=== PATIENT | female | born 1980 | race Two or more races ===

== ENCOUNTER 2024-05-15 12:55 | Outpatient (RCR) | payer MEDICAID, SELFPAY ==
--- NOTE | 2024-05-15 13:12 | PTNOTE_ITS ---
PT OP Initial Eval Patient Information Outpatient Physical Therapy Treatment Date: 05/15/24 Visit Reasons: low back unspeciefied Medical Diagnosis: M54.5 Treatment Dx #1: LBP with radiculopathy Start of Care: 05/15/24 Date of Onset: 1 yr ago Smoking Status Smoking Status: Never smoker Initial Assessment Subjective: Pt is 43 yr old faroese speaking female who c/o LBP and B lateral hip pain that interrupts sleep. Increased pain with prolonged sitting and standing and there is pain in B LE's down the LE to the knees. She can do HH chores without significant pain PMH: allergies Imaging: Xray results in chart: negative Pt goal: to lessen the LBP Objective: Trunk ArOM: ? B SB 50% of normal with pain ? Extension: 20% with pain around L4-5, L5-S1 ? Flexion: 10 from floor with mild LBP ? B rotation: 60% with pain in lateral hips ? TTP: moderate paraspinals L5-S1 ? Neuro: L SLR: positive Assessment: ? Pt presents with trunk flexion sensitivity and overlying myofascial pain ? and TTP around L5-S1 consistent with ? lower lumbar disc bulge(s) with radiculopathy. Pt requires skilled therapy in order to decrease ? pain and improve sitting/standing tolerance and has fair rehab potential. Eval ?followed by [facility]P printout. Short Term and Director Business Intelligence Goals ? 1. Ind with HEP ? 2. Improved sitting/standing tolerance to 30 minutes with <=4/10 LBP ? 3. Decreased lower paraspinal TTP from mod to min 4. Improved HH chore tolerance to at least 30 minutes with <=3/10 LBP and no ?increase in LE ssx ? Treatment Plan 1. Manual therapy ? 2. Therex ? 3. Modalities as indicated, moist heat, ice, estim, mechanical traction Frequency and Duration: 1-2x a week for 12 sessions Certification Dates: 05/15/24 to 08/11/24 Procedure Charges OP PT Eval Mod Complex 30 minutes: Yes
== END 2024-05-27 23:59 | disposition home or self-care (01) ==
LOC: CPTX 12:55
PROVIDERS: PCP Physician Assistant Medical; Referring Provider Physician Assistant Medical; Visit Provider Physician Assistant Medical
DX: M54.16 Radiculopathy, lumbar region (principal); M25.552 Pain in left hip; M25.551 Pain in right hip
CPT/HCPCS: 97162

== ENCOUNTER 2024-06-17 17:00 | Outpatient (RCR) | payer MEDICAID, SELFPAY ==
--- NOTE | 2024-06-03 17:27 | PT.ODAYNRPT ---
PT Outpatient Daily Note OP Daily Note Outpatient Physical Therapy Treatment Date: 06/03/24 Visit Reasons: low back unspecified Subjective: Same as time of evaluation Objective: See F/S for therex MT: [facility] L/S with flexbar x7' Assessment: Increased lumbar pressure with prone on elbows Plan: Continue per POC Length of Time (minutes) of Treatment: 30 Minutes Procedure Charges Therapeutic Exercise 30 minutes: Yes
--- NOTE | 2024-06-09 18:01 | PT.ODAYNRPT ---
PT Outpatient Daily Note OP Daily Note Outpatient Physical Therapy Treatment Date: 06/09/24 Visit Reasons: low back unspecified Subjective: Continued LBP at night Objective: See F/S for therex MT: [facility] L/S with flexbar x7' Assessment: Increased lumbar pressure but low pain with prone on elbows Plan: Continue per POC Length of Time (minutes) of Treatment: 30 Minutes Procedure Charges Therapeutic Exercise 30 minutes: Yes
--- NOTE | 2024-06-17 17:40 | PT.ODAYNRPT ---
PT Outpatient Daily Note OP Daily Note Outpatient Physical Therapy Treatment Date: 06/17/24 Visit Reasons: low back unspecified Subjective: Continued LBP that radiates into the LE's at night Objective: See F/S for therex MT: [facility] L/S with flexbar x7' Mech traction x7' at 40 lbs Assessment: Increased lumbar pressure but low pain with prone on elbows Plan: Continue per POC Length of Time (minutes) of Treatment: 30 Minutes Procedure Charges Therapeutic Exercise 30 minutes: Yes
== END 2024-06-27 23:59 | disposition home or self-care (01) ==
LOC: CPTX 17:00
PROVIDERS: PCP Physician Assistant Medical; Referring Provider Physician Assistant Medical; Visit Provider Physician Assistant Medical
DX: M54.16 Radiculopathy, lumbar region (principal)
CPT/HCPCS: 97110

== ENCOUNTER 2024-07-22 15:46 | Outpatient (RCR) | payer MEDICAID, SELFPAY ==
--- NOTE | 2024-07-22 16:38 | PT.ODAYNRPT ---
PT Outpatient Daily Note OP Daily Note Outpatient Physical Therapy Treatment Date: 07/22/24 Visit Reasons: Low back unspecified Subjective: Continued LBP at night Objective: See F/S for therex MT: [facility] L/S with flexbar x7' Assessment: Increased lumbar pressure but low pain with prone on elbows Plan: Continue per POC Length of Time (minutes) of Treatment: 30 Minutes Procedure Charges Therapeutic Exercise 30 minutes: Yes
== END 2024-07-25 23:59 | disposition home or self-care (01) ==
LOC: CPTX 15:46
PROVIDERS: PCP Physician Assistant Medical; Referring Provider Physician Assistant Medical; Visit Provider Physician Assistant Medical
DX: M54.16 Radiculopathy, lumbar region (principal)
CPT/HCPCS: 97110

== ENCOUNTER 2024-07-29 16:04 | Outpatient (RCR) | payer MEDICAID, SELFPAY ==
--- NOTE | 2024-07-29 18:14 | PT.ODS1RPT ---
PT OP Progress/Discharge Note Date of Service: 07/29/24 Progress Note/DC Note Progress Note/Discharge Note: DC Note Patient Information Visit Reasons: Low back pain unspecified Service Continue Service or Discharge: Discharge Status Subjective: Less LBP since last week and she is doing HEP and is ready to D/C. Pt can sit and stand for at least 30 mins without pain. Objective: Trunk AROM: FB: 8 from floor Extension: 50% of full TTP: min of L/S paraspinals Assessment: Pt has attended the eval and 5 Rx sessions with good progress to meet therapy goals. Pt has less TTP of lumbar paraspinals to min to meet that goal. She has improved sitting and standing tolerance to 30 mins to meet that goal. She has improved HH chore tolerance to 30 mins with min LBP and is independent with HEP. Plan: D/C with HEP. Procedure Charges Therapeutic Exercise 30 minutes: Yes
== END 2024-08-25 23:59 | disposition home or self-care (01) ==
LOC: CPTX 16:04
PROVIDERS: PCP Physician Assistant Medical; Referring Provider Physician Assistant Medical; Visit Provider Physician Assistant Medical
DX: M54.16 Radiculopathy, lumbar region (principal)
CPT/HCPCS: 97110